=== PATIENT | male | born 1975 | race Caucasian/White ===

== ENCOUNTER 2019-02-23 21:54 | Emergency (ER) | payer BC, MEDICAID ==
[~2019-02-23] VITALS: Ht 167.6 cm; Wt 77.1 kg
[2019-02-23 22:00] VITALS: BP_SYST 128
--- NOTE | 2019-02-23 22:20 | NUR ---
Patient to ER bed 8 to gown for evaluation. Side rails up. Report given to MG DOOLEY.
--- NOTE | 2019-02-23 22:25 | NUR ---
Pt C/O Lt flank pain radiating to Lt abdomen and nausea x 1 hour. Pt has hx of kidney stones. Denies any fever, vomiting or any other symptoms at this time. Will continue to monitor.
--- NOTE | 2019-02-23 22:49 | NUR ---
ER Dr. Cook at bedside examining patient.
--- NOTE | 2019-02-23 23:02 | NUR ---
# 20 gauge angiocath placed to RT AC. Use of asceptic technique. Opsite placed over site. Blood return noted. Blood for lab drawn from site. Flushed with 10 cc of normal saline. No evidence of infiltration noted. Patient tolerated well.
[2019-02-23] MEDS: NACL 0.9% 1,000 ML IV ONE (23:05)
[2019-02-23] MEDS: ONDANSETRON HCL 4 MG/2 ML VIAL IVP ONE (23:06)
[2019-02-23] MEDS: KETOROLAC TROMETHAMINE 30 MG VIAL IVP ONE (23:08)
--- NOTE | 2019-02-24 | NUR ---
Pt states his abdominal pain has been relieved by medication and fluids.
[2019-02-24 00:06] VITALS: BP_SYST 128
--- NOTE | 2019-02-24 00:08 | NUR ---
Patient given written and verbal discharge instructions and verbalizes understanding. ER MD discussed with patient the results and treatment provided. Patient in stable condition. ID arm band removed. IV catheter removed intact and dressing applied, no active bleeding. Rx of Flomax, Motrin, Zofran and [place] given. Patient educated on pain management and to follow up with PMD. Pain Scale 0. Opportunity for questions provided and answered. Medication side effect fact sheet provided. Patient will be transported home by significant other.
== END 2019-02-24 00:08 | disposition home or self-care (01) ==
LOC: SED 21:54
DX: R10.9 Unspecified abdominal pain (principal); R03.0 Elevated blood-pressure reading, without diagnosis of hypertension; Z90.89 Acquired absence of other organs
CPT/HCPCS: 81002; 96374; 96375; 99283; J1885; J2405